=== PATIENT | female | born 1965 | race Caucasian/White ===

== ENCOUNTER 2016-03-08 06:50 | Day surgery (SDC) | payer BC ==
--- NOTE | 2016-03-08 11:04 | Operative Note - Ferro ---
PAIN SERVICE OPERATIVE REPORT DATE OF PROCEDURE: 03/08/2016. SURGEON: Aly Mcgrath D.O. PREOPERATIVE DIAGNOSIS: LUMBAR RADICULITIS, ICD10 CODE M54.16 AND M54.17. PROCEDURE: Fluoroscopically guided bilateral lumbar epidural injection at L4-5. ANESTHESIA: Local sedation. ANESTHESIA PROVIDER: Raleigh Evans CRNA. INDICATIONS: This patient presents with pain which starts in the back but then extends into the hips and legs. Her diagnostics show both a 4-5 and a 5-1 disc. The current pattern is 4-5. DESCRIPTION OF PROCEDURE: Intravenous line, vital sign monitoring, intravenous sedation. Prepped and draped with sterile technique. Under imaging, the epidural interspace at L4-5 was marked bilaterally. The skin was infiltrated. Two separate 17-gauge, 6-inch Tuohy needles, one left and one right of midline. Contrast epidurogram showed symmetric left quadrant flow followed by symmetric right quadrant flow. A total of 5.0 mL of 0.125% Marcaine with dexamethasone was injected, first left and then right. Both needles were removed. The back was cleaned, topical antibiotic and sterile dressing were applied. We will monitor and evaluate. Aly Mcgrath D.O. Date Time JOB NUMBER: [id number] cc: Dr. Tin NARANJO
[2016-03-08] MEDS ORDERED: MIDAZOLAM HCL 2MG/2ML VIAL IV ONE (13:20)
[2016-03-08] MEDS ORDERED: PROPOFOL 10 MG/ML VIAL IV ONE (13:20)
[2016-03-08] MEDS ORDERED: FENTANYL PF 100MCG/2ML VIAL IV ONE ×2 (13:20→14:28)
[2016-03-08] MEDS ORDERED: LIDOCAINE 2% MDV (20MG/ML) 20ML VIAL IV ONE (13:20)
[2016-03-08] MEDS ORDERED: 0.9 % SODIUM CHLORIDE 10 ML VIAL IVP ONE (14:28)
[2016-03-08] MEDS ORDERED: LIDOCAINE 1% W/EPI 1:200,000 MPF 30ML SQ ONE (14:28)
[2016-03-08] MEDS ORDERED: BUPIVACAINE 0.5% W/EPI MPF 30 ML VIAL IVP ONE (14:28)
[2016-03-08] MEDS ORDERED: HYDROMORPHONE HCL 2 MG/ML VIAL IV ONE (14:28)
[2016-03-08] MEDS ORDERED: DEXAMETHASONE PRESERVATIVE FREE 10MG/ML VIAL IV ONE (14:28)
[2016-03-08] MEDS ORDERED: BUPIVACAINE 0.25% W/EPI MPF 30ML VIAL IVP ONE (14:28)
== END 2016-03-08 09:15 | disposition home or self-care (01) ==
LOC: SUR 06:50
PROVIDERS: ATTEND Pain Medicine Interventional Pain Medicine
DX: M54.16 Radiculopathy, lumbar region (principal); M54.17 Radiculopathy, lumbosacral region
CPT/HCPCS: 62322; 01992; Q9967; J1100; J3010; J1170

== ENCOUNTER 2016-05-31 06:39 | Day surgery (SDC) | payer BC ==
[2016-05-31] MEDS ORDERED: BUPIVACAINE 0.5% W/EPI MPF 30 ML VIAL IVP ONE (10:03)
[2016-05-31] MEDS ORDERED: BUPIVACAINE 0.25% W/EPI MPF 30ML VIAL IVP ONE (10:03)
[2016-05-31] MEDS ORDERED: DEXAMETHASONE PRESERVATIVE FREE 10MG/ML VIAL IV ONE (10:03)
[2016-05-31] MEDS ORDERED: LIDOCAINE 1% W/EPI 1:200,000 MPF 30ML SQ ONE (10:03)
[2016-05-31] MEDS ORDERED: FENTANYL PF 100MCG/2ML VIAL IV ONE (14:50)
[2016-05-31] MEDS ORDERED: LIDOCAINE 2% MDV (20MG/ML) 20ML VIAL IV ONE (14:50)
[2016-05-31] MEDS ORDERED: MIDAZOLAM HCL 2MG/2ML VIAL IV ONE (14:50)
[2016-05-31] MEDS ORDERED: PROPOFOL 10 MG/ML VIAL IV ONE (14:50)
--- NOTE | 2016-05-31 16:11 | Operative Note - Ferro ---
DATE OF SURGERY: 05/31/16 PREOPERATIVE DIAGNOSIS: CERVICAL RADICULITIS, ICD-10 CODE = M54.13. OPERATION: FLUOROSCOPICALLY-GUIDED RIGHT QUADRANT CERVICAL EPIDURAL INJECTION C5/6. SURGEON: LEXI MARTIN D.O. ANESTHESIA: LOCAL SEDATION. ANESTHESIA PROVIDER: JEFFREY FRANKLIN CRNA. INDICATION: This patient presents with pain, which is right-sided neck and shoulder. Diagnostic studies show disc space abnormality to 4/5, 5/6, and 6/7. PROCEDURE: Intravenous line, vital sign monitoring, IV sedation, prepped, draped, sterile technique. Consistent with the pattern of pain into the shoulder following a 5/6 distribution. Cervical epidural interspace at C5/6 marked on the right, infiltrated, and an 18-gauge Tuohy needle with loss-of- resistance. Contrast epidurogram showing extensive right quadrant flow characteristics. 5 mL of 0.125% Marcaine with Dexamethasone injected. Needle removed. Neck cleaned. Topical antibiotic. Sterile dressing applied. We will monitor and evaluate. LEXI MARTIN D.O. Date & Time cc: Dr. Frederick JOB NUMBER: [id number] MTDD
== END 2016-05-31 08:40 | disposition home or self-care (01) ==
LOC: SUR 06:39
PROVIDERS: ATTEND Pain Medicine Interventional Pain Medicine
DX: M54.13 Radiculopathy, cervicothoracic region (principal)
CPT/HCPCS: 62321; 01991; Q9967; J1100; J3010

== ENCOUNTER 2016-09-27 07:11 | Day surgery (SDC) | payer BC ==
[2016-09-27] MEDS ORDERED: BUPIVACAINE 0.25% MPF 30ML VIAL IVP ONE (11:12)
[2016-09-27] MEDS ORDERED: BUPIVACAINE 0.25% W/EPI MPF 30ML VIAL IVP ONE (11:12)
[2016-09-27] MEDS ORDERED: LIDOCAINE 1% W/EPI 1:200,000 MPF 30ML SQ ONE (11:12)
[2016-09-27] MEDS ORDERED: DEXAMETHASONE PRESERVATIVE FREE 10MG/ML VIAL IV ONE (11:12)
[2016-09-27] MEDS ORDERED: HYDROCODONE/APAP 7.5/325MG TABLET PO ONE (11:12)
[2016-09-27] MEDS ORDERED: 0.9 % SODIUM CHLORIDE 10 ML VIAL IVP ONE (11:12)
[2016-09-27] MEDS ORDERED: PROPOFOL 10 MG/ML VIAL IV ONE (14:00)
[2016-09-27] MEDS ORDERED: LIDOCAINE 2% MDV (20MG/ML) 20ML VIAL IV ONE (14:00)
[2016-09-27] MEDS ORDERED: FENTANYL PF 100MCG/2ML VIAL IV ONE (14:00)
[2016-09-27] MEDS ORDERED: MIDAZOLAM HCL 2MG/2ML VIAL IV ONE (14:00)
--- NOTE | 2016-09-27 19:51 | Operative Note - Ferro ---
DATE OF SURGERY: 09/27/16 PREOPERATIVE DIAGNOSIS: LUMBAR RADICULITIS, ICD-10 CODE = M54.16 AND M54.17. OPERATION: FLUOROSCOPIC-GUIDED BILATERAL LUMBAR EPIDURAL INJECTION, L4-5. SURGEON: LEXI MARTIN D.O. ANESTHESIA: LOCAL SEDATION. ANESTHESIA PROVIDER: JEFFREY FRANKLIN CRNA. INDICATION: This patient presents with pain, which starts in the back but then extends into the hips and legs. Diagnostics did show a 4-5 and a 5-1 disc with the current pattern towards the hips and outer leg as L4-5. PROCEDURE: Intravenous line, vital sign monitoring, IV sedation. Prepped and draped sterile technique. Under imaging, the epidural interspace at L4-5 was identified and marked bilaterally. Skin infiltrated. Two separate #18 gauge needles, one left and one right at the midline. 5 mL 0.125% Marcaine with Dexamethasone injected. [place] removed, back cleaned. Topical antibiotic and sterile dressing applied. Will monitor and evaluate. cc: Dr. Fish Frederick JOB NUMBER: [id number] MTDD
== END 2016-09-27 09:04 | disposition home or self-care (01) ==
LOC: SUR 07:11
PROVIDERS: ATTEND Pain Medicine Interventional Pain Medicine
DX: M54.16 Radiculopathy, lumbar region (principal); M54.17 Radiculopathy, lumbosacral region
CPT/HCPCS: 62323; 01936; J1100; J3010

== ENCOUNTER 2016-10-18 06:51 | Day surgery (SDC) | payer BC ==
[2016-10-18] MEDS ORDERED: LIDOCAINE 2% MDV (20MG/ML) 20ML VIAL IV ONE (14:00)
[2016-10-18] MEDS ORDERED: FENTANYL PF 100MCG/2ML VIAL IV ONE (14:00)
[2016-10-18] MEDS ORDERED: PROPOFOL 10 MG/ML VIAL IV ONE (14:00)
[2016-10-18] MEDS ORDERED: DEXAMETHASONE PRESERVATIVE FREE 10MG/ML VIAL IV ONE (14:00)
[2016-10-18] MEDS ORDERED: BUPIVACAINE 0.25% MPF 30ML VIAL IVP ONE (14:00)
[2016-10-18] MEDS ORDERED: LIDOCAINE 1% W/EPI 1:200,000 MPF 30ML SQ ONE (14:00)
[2016-10-18] MEDS ORDERED: MIDAZOLAM HCL 2MG/2ML VIAL IV ONE (14:00)
[2016-10-18] MEDS ORDERED: BUPIVACAINE 0.5% W/EPI MPF 30 ML VIAL IVP ONE (14:00)
[2016-10-18] MEDS ORDERED: 0.9 % SODIUM CHLORIDE 10 ML VIAL IVP ONE (14:00)
--- NOTE | 2016-10-18 22:02 | Operative Note - Ferro ---
DATE OF SURGERY: 10/18/16 PREOPERATIVE DIAGNOSIS: LUMBAR RADICULITIS, ICD-10 CODE = M54.16 AND M54.17. OPERATION: FLUOROSCOPIC-GUIDED BILATERAL LUMBAR EPIDURAL INJECTION, L4-5. SURGEON: LEXI MARTIN D.O. ANESTHESIA: IV SEDATION BY ANESTHESIA. ANESTHESIA PROVIDER: JEFFREY FRANKLIN CRNA INDICATION: This patient presents with pain, which starts in the back but then extends into the hips and legs. Diagnostics show both a 4-5 and a 5-1 disc. The current pattern of pain follows the hips and outer leg, L4-5. PROCEDURE: Intravenous line, vital sign monitoring, IV sedation. Prepped and draped in sterile technique. Patient prone. Epidural interspace at L4-5 was identified and marked bilaterally. Skin infiltrated. Two separate #18 gauge Tuohy needles, one left and one right at the midline. 5 mL 0.125% Marcaine with Dexamethasone injected at each. [place] removed, back cleaned. Topical antibiotic and sterile dressing applied. Will monitor and evaluate. cc: Dr. Frederick JOB NUMBER: [id number] MTDD
== END 2016-10-18 08:47 | disposition home or self-care (01) ==
LOC: SUR 06:51
PROVIDERS: ATTEND Pain Medicine Interventional Pain Medicine
DX: M54.16 Radiculopathy, lumbar region (principal); M54.17 Radiculopathy, lumbosacral region; F17.200 Nicotine dependence, unspecified, uncomplicated

== ENCOUNTER 2016-12-06 07:05 | Day surgery (SDC) | payer BC ==
[~2016-12-06 07:05] MED LIST: ACETAMINOPHEN 1,000 MG/100 ML BTL IV ONE
[2016-12-06] MEDS ORDERED: LIDOCAINE 1% W/EPI 1:200,000 MPF 30ML SQ ONE (13:38)
[2016-12-06] MEDS ORDERED: 0.9 % SODIUM CHLORIDE 10 ML VIAL IVP ONE (13:38)
[2016-12-06] MEDS ORDERED: BUPIVACAINE 0.5% W/EPI MPF 30 ML VIAL IVP ONE (13:38)
[2016-12-06] MEDS ORDERED: DEXAMETHASONE PRESERVATIVE FREE 10MG/ML VIAL IV ONE (13:38)
[2016-12-06] MEDS ORDERED: BUPIVACAINE 0.25% MPF 30ML VIAL IVP ONE (13:38)
[2016-12-06] MEDS ORDERED: FENTANYL PF 100MCG/2ML VIAL IV ONE (14:00)
[2016-12-06] MEDS ORDERED: LIDOCAINE 2% MDV (20MG/ML) 20ML VIAL IV ONE (14:00)
[2016-12-06] MEDS ORDERED: MIDAZOLAM HCL 2MG/2ML VIAL IV ONE (14:00)
[2016-12-06] MEDS ORDERED: PROPOFOL 10 MG/ML VIAL IV ONE (14:00)
--- NOTE | 2016-12-06 15:44 | Operative Note - Ferro ---
DATE OF SURGERY: 12/06/16 PREOPERATIVE DIAGNOSIS: CERVICAL RADICULITIS, ICD-10 CODE = M54.13. OPERATION: FLUOROSCOPICALLY-GUIDED CERVICAL EPIDURAL INJECTION C6/7 RIGHT. SURGEON: LEXI MARTIN D.O. ANESTHESIA: LOCAL SEDATION. ANESTHESIA PROVIDER: JEFFREY FRANKLIN CRNA. INDICATION: This patient presents with pain, which is right-sided neck and shoulder. Diagnostic studies of the cervical spine show nonspecific changes. Current pattern follows a 5/6 and 6/7 distribution. PROCEDURE: Intravenous line, vital sign monitoring, IV sedation, prepped, draped, sterile technique. Under imaging, cervical epidural interspace quadrant C6/7 marked, infiltrated, and an 18-gauge Tuohy needle with [id number]. 5 mL of 0.125% Marcaine with Dexamethasone injected. Needle removed. Neck cleaned. Topical antibiotic. Sterile dressing applied. We will monitor and evaluate. cc: Dr. Frederick JOB NUMBER: [id number] MTDD
== END 2016-12-06 08:45 | disposition home or self-care (01) ==
LOC: SUR 07:05
PROVIDERS: ATTEND Pain Medicine Interventional Pain Medicine
DX: M54.13 Radiculopathy, cervicothoracic region (principal)
CPT/HCPCS: 62321; 01936; J1100; J3010

== ENCOUNTER 2017-04-04 07:06 | Day surgery (SDC) | payer BC ==
[2017-04-04] MEDS ORDERED: MIDAZOLAM HCL 2MG/2ML VIAL IV ONE (07:07)
[2017-04-04] MEDS ORDERED: PROPOFOL 10 MG/ML VIAL IV ONE (07:07)
[2017-04-04] MEDS ORDERED: LIDOCAINE 2% MDV (20MG/ML) 20ML VIAL IV ONE (07:07)
[2017-04-04] MEDS ORDERED: BUPIVACAINE 0.5% W/EPI MPF 30 ML VIAL IVP ONE (07:07)
[2017-04-04] MEDS ORDERED: FENTANYL PF 100MCG/2ML VIAL IV ONE (07:07)
[2017-04-04] MEDS ORDERED: LIDOCAINE 1% W/EPI 1:200,000 MPF 30ML SQ ONE (07:07)
[2017-04-04] MEDS ORDERED: DEXAMETHASONE PRESERVATIVE FREE 10MG/ML VIAL IV ONE (07:07)
[2017-04-04] MEDS ORDERED: 0.9 % SODIUM CHLORIDE 10 ML VIAL IVP ONE (07:07)
[2017-04-04] MEDS ORDERED: BUPIVACAINE 0.25% MPF 30ML VIAL IVP ONE (07:07)
--- NOTE | 2017-04-04 15:04 | Operative Note - Ferro ---
DATE OF SURGERY: 04/04/17 PREOPERATIVE DIAGNOSIS: LUMBAR RADICULITIS, ICD-10 CODE M54.16 AND M54.17. OPERATION: FLUOROSCOPICALLY-GUIDED BILATERAL LUMBAR EPIDURAL INJECTION L4-L5. SURGEON: LEXI MARTIN D.O. ANESTHESIA: LOCAL SEDATION. ANESTHESIA PROVIDER: GEGE BRIONES CRNA. INDICATION: This patient presents with pain, which starts in the back but extends equally into both legs, left and right, across an outer and front surface. The pattern and distribution is in L4. Her diagnostics show both a 4-5 and a 5-1 disc. PROCEDURE: Intravenous line, vital sign monitoring, IV sedation, prepped, draped, sterile technique. The epidural interspace at L4-L5 identified and marked bilaterally. Skin infiltrated then two separate 17-gauge six-inch Tuohy needles one left and one right of the midline with [id number]. 5 mL of 0.125% Marcaine with Dexamethasone was injected, first left then right. Both needles removed. Back cleaned. Topical antibiotic. Sterile dressing were applied. We will monitor and evaluate. cc: Dr. Castle JOB NUMBER: [id number] MTDD
== END 2017-04-04 08:40 | disposition home or self-care (01) ==
LOC: SUR 07:06
PROVIDERS: ATTEND Pain Medicine Interventional Pain Medicine
DX: M54.16 Radiculopathy, lumbar region (principal); M54.17 Radiculopathy, lumbosacral region
CPT/HCPCS: 62323; 01936; J1100

== ENCOUNTER 2017-05-23 07:14 | Day surgery (SDC) | payer BC ==
[2017-05-23] MEDS ORDERED: LIDOCAINE 1% W/EPI 1:200,000 MPF 30ML SQ ONE (07:15)
[2017-05-23] MEDS ORDERED: 0.9 % SODIUM CHLORIDE 10 ML VIAL IVP ONE (07:15)
[2017-05-23] MEDS ORDERED: BUPIVACAINE 0.25% MPF 30ML VIAL IVP ONE (07:15)
[2017-05-23] MEDS ORDERED: DEXAMETHASONE PRESERVATIVE FREE 10MG/ML VIAL IV ONE (07:15)
[2017-05-23] MEDS ORDERED: BUPIVACAINE 0.5% W/EPI MPF 30 ML VIAL IVP ONE (07:15)
[2017-05-23] MEDS ORDERED: LIDOCAINE 2% MDV (20MG/ML) 20ML VIAL IV ONE (07:15)
[2017-05-23] MEDS ORDERED: MIDAZOLAM HCL 2MG/2ML VIAL IV ONE (07:15)
[2017-05-23] MEDS ORDERED: PROPOFOL 10 MG/ML VIAL IV ONE (07:15)
[2017-05-23] MEDS ORDERED: FENTANYL PF 100MCG/2ML VIAL IV ONE (07:15)
--- NOTE | 2017-05-23 15:31 | Operative Note - Ferro ---
DATE OF SURGERY: 05/23/17 PRIMARY CARE PHYSICIAN: DR. CASTLE. PREOPERATIVE DIAGNOSIS: LUMBAR RADICULOPATHY, ICD-10 CODE = M54.13 AND M54.12. OPERATION: FLUOROSCOPICALLY-GUIDED RIGHT QUADRANT EPIDURAL INJECTION C6/7. SURGEON: LEXI MARTIN D.O. ANESTHESIA: LOCAL SEDATION. ANESTHESIA PROVIDER: JEFFREY FRANKLIN CRNA. INDICATION: This patient presents with pain, which is right-sided neck, shoulder, and arm. Diagnostics show a 5/6 and a 6/7 disc. PROCEDURE: Intravenous line, vital sign monitoring, IV sedation, prepped, draped, sterile technique. Under imaging, cervical epidural interspace at C6/7 marked and infiltrated. A 20-gauge, 3.5 inch Tuohy needle with loss-of- resistance. 5 mL of 0.125% Marcaine with Dexamethasone was injected. Needle removed. Back cleaned. Topical antibiotic. Sterile dressing was applied. We will monitor and evaluate. cc: Dr. Castle JOB NUMBER: [id number] MTDD
== END 2017-05-23 08:42 | disposition home or self-care (01) ==
LOC: SUR 07:14
PROVIDERS: ATTEND Pain Medicine Interventional Pain Medicine
DX: M54.13 Radiculopathy, cervicothoracic region (principal); M54.12 Radiculopathy, cervical region; J45.909 Unspecified asthma, uncomplicated
CPT/HCPCS: 62321; 01936; J1100

== ENCOUNTER 2017-07-11 07:00 | Day surgery (SDC) | payer BC ==
[2017-07-11] MEDS ORDERED: LIDOCAINE 1% W/EPI 1:200,000 MPF 30ML SQ ONE (07:01)
[2017-07-11] MEDS ORDERED: FENTANYL PF 100MCG/2ML VIAL IV ONE (07:01)
[2017-07-11] MEDS ORDERED: MIDAZOLAM HCL 2MG/2ML VIAL IV ONE (07:01)
[2017-07-11] MEDS ORDERED: BUPIVACAINE 0.5% W/EPI MPF 30 ML VIAL IVP ONE (07:01)
[2017-07-11] MEDS ORDERED: DEXAMETHASONE PRESERVATIVE FREE 10MG/ML VIAL IV ONE (07:01)
[2017-07-11] MEDS ORDERED: LIDOCAINE 2% MDV (20MG/ML) 20ML VIAL IV ONE (07:01)
[2017-07-11] MEDS ORDERED: BUPIVACAINE 0.25% MPF 30ML VIAL IVP ONE (07:01)
[2017-07-11] MEDS ORDERED: PROPOFOL 10 MG/ML VIAL IV ONE (07:01)
--- NOTE | 2017-07-12 07:23 | Operative Note ---
PAIN SERVICE OPERATIVE REPORT DATE OF PROCEDURE: 07/11/2017. SURGEON: Aly Mcgrath D.O. PREOPERATIVE DIAGNOSIS: CERVICAL RADICULOPATHY, ICD10 CODE M54.12. PROCEDURE: Fluoroscopically guided cervical epidural injection at C6-7. INDICATIONS: This patient presents with pain which is in the neck, shoulder, and arm. Diagnostics do show diffuse spondylosis with a 5-6/6-7 disc. ANESTHESIA: Local sedation. ANESTHESIA PROVIDER: Raleigh Evans CRNA. DESCRIPTION OF PROCEDURE: Intravenous line, vital sign monitoring, intravenous sedation. Prepped and draped with sterile technique. Under imaging, the cervical epidural interspace at C6-7 was marked and infiltrated. An 18-gauge Tuohy needle was used with loss of resistance. Contrast epidurogram showed diffuse epidural flow characteristics. A total of 5.0 mL of 0.125% Marcaine with dexamethasone was injected. The needle was removed. The neck was cleaned , and topical antibiotic and sterile dressing were applied. We will monitor and evaluate. JOB NUMBER: [id number] cc: Blade Castle D.O. MTDD
== END 2017-07-11 08:35 | disposition home or self-care (01) ==
LOC: SUR 07:00
PROVIDERS: ATTEND Pain Medicine Interventional Pain Medicine
DX: M54.12 Radiculopathy, cervical region (principal); J45.909 Unspecified asthma, uncomplicated; F17.210 Nicotine dependence, cigarettes, uncomplicated

== ENCOUNTER 2017-08-23 06:01 | Day surgery (SDC) | payer BC ==
[2017-08-23] MEDS ORDERED: PROPOFOL 10 MG/ML VIAL IV ONE (06:02)
[2017-08-23] MEDS ORDERED: FENTANYL PF 100MCG/2ML VIAL IV ONE (06:02)
[2017-08-23] MEDS ORDERED: ROPIVACAINE HCL (NAROPIN) /PF 5MG/ML 20ML VIAL IV ONE (06:02)
[2017-08-23] MEDS ORDERED: MIDAZOLAM HCL 2MG/2ML VIAL IV ONE (06:02)
[2017-08-23] MEDS ORDERED: SEVOFLURANE 250 ML INH ONE (06:02)
[2017-08-23] MEDS ORDERED: ONDANSETRON HCL IV 4 MG/2 ML VIAL IVP ONE (06:02)
[2017-08-23] MEDS ORDERED: LIDOCAINE 2% MDV (20MG/ML) 20ML VIAL IV ONE (06:02)
[2017-08-23] MEDS ORDERED: DEXAMETHASONE 4 MG/ML 1ML VIAL IVP ONE (06:02)
[2017-08-23] MEDS ORDERED: KETOROLAC 30 MG/ML VIAL IVP ONE (06:02)
--- NOTE | 2017-08-24 15:21 | Operative Note ---
DATE OF SURGERY: 08/23/2017 PREOPERATIVE DIAGNOSIS: Cubital tunnel syndrome of the left elbow. POSTOPERATIVE DIAGNOSIS: Cubital tunnel syndrome of the left elbow. OPERATIVE PROCEDURE: Submuscular ulnar nerve transposition at the left elbow. DESCRIPTION: This 52-year-old female was taken to the operating room and placed in the supine position on the operating room table. General anesthesia was induced. The left upper extremity was elevated, prepped with Hibiclens, and draped in the usual sterile fashion. It was exsanguinated and the tourniquet inflated to 250 mm Hg. A curvilinear incision was made centering over the medial epicondyle of the left elbow, and dissection was carried down through the skin and subcutaneous tissue. Hemostasis obtained with the electrocautery. Dissection was carried down to the ulnar nerve proximal to the cubital tunnel and the nerve easily identified here, and then with the nerve under direct vision and protected, the aponeurosis was incised to free the ulnar nerve from the impingement. The nerve was extremely tight, and once freed, demonstrated mild hourglass-type deformity. There was also slight nerve atrophy. Once the nerve had been freed, we followed it down to the first motor branch. Once this was identified, we stopped the dissection and elevated it off the conjoined tendon of the medial epicondyle and transposed the nerve into the submuscular position. Drill holes were made in the medial epicondyle, and O Vicryl was used through 3 drill holes to secure the tendon back to its anatomic origin. Before the sutures were tied, we flexed and extended the elbow and made sure that the ulnar nerve was freely mobile in the transposed position with no impingement being identified. Subsequently, the nerve was held back and the sutures were tied, and once all the sutures were tied, the elbow was taken through range of motion again to make sure that there was no impingement of the ulnar nerve. The wound was irrigated with lactated Ringer's solution and hemostasis obtained with the electrocautery. The subcutaneous tissue was closed with 3-0 Vicryl and the skin closed with running interlocking 4-0 nylon suture. Sterile dressings were applied, and the patient taken to the recovery room in satisfactory condition with a plaster splint in place with the elbow at 90 degrees and in mid pronation/supination. GROSS PATHOLOGY: This patient demonstrated marked compression of the ulnar nerve in the cubital tunnel, mild atrophy, and hourglass deformity of the nerve was identified. CC: DO JOSE A Castro
== END 2017-08-23 09:08 | disposition home or self-care (01) ==
LOC: SUR 06:01
PROVIDERS: ATTEND Orthopaedic Surgery
DX: G56.02 Carpal tunnel syndrome, left upper limb (principal); F17.210 Nicotine dependence, cigarettes, uncomplicated; F41.9 Anxiety disorder, unspecified; M54.9 Dorsalgia, unspecified; M54.2 Cervicalgia
CPT/HCPCS: 24358; 01712; 64417; J1885; J2405; J3010; J2795; 76942

== ENCOUNTER → 2017-12-19 | Day surgery (SDC) | payer BC ==
[~2017-12-19] MED LIST changes: +0.9 % SODIUM CHLORIDE 10 ML VIAL IVP ONE; -ACETAMINOPHEN 1,000 MG/100 ML BTL IV ONE; +BUPIVACAINE 0.25% W/EPI MPF 30ML VIAL IVP ONE; +BUPIVACAINE 0.5% W/EPI MPF 30 ML VIAL IVP ONE; +FENTANYL PF 100MCG/2ML VIAL IV ONE; +LIDOCAINE 1% W/EPI 1:200,000 MPF 30ML SQ ONE; +LIDOCAINE 2% MDV (20MG/ML) 20ML VIAL IV ONE; +MIDAZOLAM HCL 2MG/2ML VIAL IV ONE; +PROPOFOL 10 MG/ML VIAL IV ONE
--- NOTE | 2017-12-19 21:14 | Operative Note ---
DATE OF SURGERY: 12/19/2017 PREOPERATIVE DIAGNOSIS: LUMBAR RADICULOPATHY, ICD-10 CODE = M54.16 AND M54.17. SURGERY: FLUOROSCOPIC-GUIDED BILATERAL LUMBAR EPIDURAL INJECTION L4-5. SURGEON: LEXI MARTIN D.O. PRIMARY CARE PHYSICIAN: DR. RUBINA OH ANESTHESIA: LOCAL SEDATION. ANESTHESIA PROVIDER: CLEMENT DUNN INDICATIONS: This patient presents with pain, which is low back and bilateral legs. The component is across the hip on her front surface, which reflects an L4 pattern. Diagnostics do show a 4-5 and 5-1 disc to the pattern and the disc is 4-5. SURGERY: Intravenous line, vital sign monitoring, IV sedation, prepped and draped, sterile technique. Under imaging, the epidural interspace at L4-5 identified and marked, infiltrated. Two separate #18 gauge Tuohy needles, one left and one right of the midline, 5 mL of 0.125% Marcaine with Dexamethasone injected. Needle removed. Back cleaned. Topical antibiotic. Sterile dressing was applied. We will monitor and evaluate. cc: Dr. Oh JOB NUMBER: [id number] MTDD
== END | disposition home or self-care (01) ==
LOC: SUR 06:29
PROVIDERS: ATTEND Pain Medicine Interventional Pain Medicine
DX: M54.16 Radiculopathy, lumbar region (principal); M54.17 Radiculopathy, lumbosacral region; J45.909 Unspecified asthma, uncomplicated; K21.9 Gastro-esophageal reflux disease without esophagitis
CPT/HCPCS: 62323; 01936; J3010

== ENCOUNTER 2018-04-10 06:27 | Day surgery (SDC) | payer BC ==
[2018-04-10] MEDS ORDERED: LIDOCAINE 1% W/EPI 1:200,000 MPF 30ML SQ ONE (06:28)
[2018-04-10] MEDS ORDERED: BUPIVACAINE 0.25% MPF 30ML VIAL IVP ONE (06:28)
[2018-04-10] MEDS ORDERED: DEXAMETHASONE PRESERVATIVE FREE 10MG/ML VIAL IV ONE (06:28)
[2018-04-10] MEDS ORDERED: PROPOFOL 10 MG/ML VIAL IV ONE (06:28)
[2018-04-10] MEDS ORDERED: FENTANYL PF 100MCG/2ML VIAL IV ONE (06:28)
[2018-04-10] MEDS ORDERED: 0.9 % SODIUM CHLORIDE 10 ML VIAL IVP ONE (06:28)
[2018-04-10] MEDS ORDERED: MIDAZOLAM HCL 2MG/2ML VIAL IV ONE (06:28)
[2018-04-10] MEDS ORDERED: LIDOCAINE 2% MDV (20MG/ML) 20ML VIAL IV ONE (06:28)
[2018-04-10] MEDS ORDERED: BUPIVACAINE 0.5% W/EPI MPF 30 ML VIAL IVP ONE (06:28)
--- NOTE | 2018-04-10 17:25 | Operative Note ---
DATE OF SURGERY: 04/10/08 PREOPERATIVE DIAGNOSIS: LUMBAR RADICULOPATHY, ICD-10 CODE = M54.16 AND M54.17. SURGERY: FLUOROSCOPIC-GUIDED BILATERAL LUMBAR EPIDURAL INJECTION L4-5. SURGEON: LEXI MARTIN D.O. PRIMARY CARE PHYSICIAN: DR. OH. ANESTHESIA: LOCAL SEDATION. ANESTHESIA PROVIDER: CLEMENT DUNN. INDICATIONS: This patient presents with pain, which is low back, hip, and leg. The leg component across the outer front surface. The pattern is 4-5. Her diagnostics do show a 4-5 and 5-1 disc; the pattern 4-5. SURGERY: Intravenous line, vital sign monitoring, IV sedation, prepped and draped, sterile technique. The epidural interspace at L4-5 identified and marked bilaterally. Skin infiltrated. Two separate #18 gauge Tuohy needles, one left and one right of the midline. 5 mL of 0.125% Marcaine with Dexamethasone injected. Needle removed. Back cleaned. Topical antibiotic. Sterile dressing was applied. We will monitor and evaluate. cc: Dr. Oh JOB NUMBER: [id number] MTDD
== END 2018-04-10 08:26 | disposition home or self-care (01) ==
LOC: SUR 06:27
PROVIDERS: ATTEND Pain Medicine Interventional Pain Medicine
DX: M54.16 Radiculopathy, lumbar region (principal); M54.17 Radiculopathy, lumbosacral region; J45.909 Unspecified asthma, uncomplicated; K21.9 Gastro-esophageal reflux disease without esophagitis; F17.210 Nicotine dependence, cigarettes, uncomplicated
CPT/HCPCS: 62323; 01992; Q9967; J1100; J3010

== ENCOUNTER 2018-06-05 06:22 | Day surgery (SDC) | payer BC ==
[2018-06-05] MEDS ORDERED: FENTANYL PF 100MCG/2ML VIAL IV ONE (06:23)
[2018-06-05] MEDS ORDERED: DEXAMETHASONE PRESERVATIVE FREE 10MG/ML VIAL IV ONE (06:23)
[2018-06-05] MEDS ORDERED: 0.9 % SODIUM CHLORIDE 10 ML VIAL IVP ONE (06:23)
[2018-06-05] MEDS ORDERED: MIDAZOLAM HCL 2MG/2ML VIAL IV ONE (06:23)
[2018-06-05] MEDS ORDERED: LIDOCAINE 1% W/EPI 1:200,000 MPF 30ML SQ ONE (06:23)
[2018-06-05] MEDS ORDERED: PROPOFOL 10 MG/ML VIAL IV ONE (06:23)
[2018-06-05] MEDS ORDERED: BUPIVACAINE 0.5% W/EPI MPF 30 ML VIAL IVP ONE (06:23)
[2018-06-05] MEDS ORDERED: LIDOCAINE 2% MDV (20MG/ML) 20ML VIAL IV ONE (06:23)
[2018-06-05] MEDS ORDERED: BUPIVACAINE 0.25% MPF 30ML VIAL IVP ONE (06:23)
--- NOTE | 2018-06-05 20:23 | Operative Note ---
DATE OF SURGERY: 06/05/2018 PREOPERATIVE DIAGNOSIS: CERVICAL RADICULOPATHY, ICD-10 CODE M54.16 AND M54.17. POSTOPERATIVE DIAGNOSIS: CERVICAL RADICULOPATHY, ICD-10 CODE M54.16 AND M54.17. SURGERY: FLUOROSCOPIC-GUIDED CERVICAL EPIDURAL INJECTION C6-7. SURGEON: LEXI MARTIN D.O. PRIMARY CARE PHYSICIAN: DR. CASTLE ANESTHESIA: LOCAL SEDATION. ANESTHESIA PROVIDER: JEFFREY FRANKLIN CRNA INDICATIONS: This patient presents with pain, which starts in the neck but then extends into the shoulder and arm. Diagnostic studies do show disc abnormalities at 5-6 and 6-7 and diffuse spondylitic change. SURGERY: Intravenous line, vital sign monitoring, IV sedation, prepped and draped sterile technique. The epidural interspace with the patient prone at C6- 7 was marked and infiltrated. A #20 gauge, 3.5 inch Tuohy needed with loss-of- resistance, atraumatic, no blood, no CSF. 5 mL 0.125% Marcaine with Dexamethasone injected. Needle removed, neck cleaned, topical antibiotic and sterile dressing applied. Will monitor and evaluate. cc: Dr. Castle JOB NUMBER: [id number] MTDD
== END 2018-06-05 08:16 | disposition home or self-care (01) ==
LOC: SUR 06:22
PROVIDERS: ATTEND Pain Medicine Interventional Pain Medicine
DX: M54.16 Radiculopathy, lumbar region (principal); M54.17 Radiculopathy, lumbosacral region; J45.909 Unspecified asthma, uncomplicated; K21.9 Gastro-esophageal reflux disease without esophagitis; K44.9 Diaphragmatic hernia without obstruction or gangrene
CPT/HCPCS: 62321; 01992; Q9967; J1100; J3010

== ENCOUNTER 2018-07-24 05:45 | Day surgery (SDC) | payer BC ==
[2018-07-24] MEDS ORDERED: FENTANYL PF 100MCG/2ML VIAL IV ONE (05:46)
[2018-07-24] MEDS ORDERED: MIDAZOLAM HCL 2MG/2ML VIAL IV ONE (05:46)
[2018-07-24] MEDS ORDERED: LIDOCAINE 2% MDV (20MG/ML) 20ML VIAL IV ONE (05:46)
[2018-07-24] MEDS ORDERED: PROPOFOL 10 MG/ML VIAL IV ONE (05:46)
[2018-07-24] MEDS ORDERED: RINGERS SOLUTION,LACTATED 1,000 ML IV ONE (06:10)
[2018-07-24] MEDS ORDERED: LIDOCAINE 1% W/EPI 1:200,000 MPF 30ML SQ ONE ×2 (07:06→07:35)
[2018-07-24] MEDS ORDERED: BUPIVACAINE 0.5% W/EPI MPF 30 ML VIAL SQ ONE ×2 (07:06→07:35)
[2018-07-24] MEDS ORDERED: BUPIVACAINE 0.25% PF (2.5MG/ML) 10ML VIAL IM ONE ×2 (07:06→07:35)
[2018-07-24] MEDS ORDERED: DEXAMETHASONE PRESERVATIVE FREE 10MG/ML VIAL SQ ONE ×2 (07:07→07:36)
--- NOTE | 2018-07-31 06:10 | Operative Note ---
DATE OF SURGERY: 07/24/2018 PREOPERATIVE DIAGNOSIS: Cervical radiculopathy, ICD10 code M54.12. OPERATION: Fluoroscopic-guided right quadrant cervical epidural injection C6-7. ANESTHESIA: Local with sedation. ANESTHESIA PROVIDER: Raleigh Evans INDICATION: This patient presents with pain which is neck and shoulders, somewhat more right than left. Diagnostics show a 5-6, 6-7 disc with multiple- level spondylosis. PROCEDURE: Intravenous line, vital sign monitoring, IV sedation, prepped and draped in sterile technique. Under imaging, the cervical epidural interspace right quadrant C6-7 marked, infiltrated, 18-gauge Tuohy needle, loss of resistance, atraumatic, no blood, no CSF. Then 5 mL of 0.125% Marcaine with dexamethasone injected. Needle removed. Neck cleaned with topical antibiotic. Sterile dressing applied. We will monitor and evaluate. MTDD
== END 2018-07-24 08:11 | disposition home or self-care (01) ==
LOC: SUR 05:45
PROVIDERS: ATTEND Pain Medicine Interventional Pain Medicine
DX: M54.12 Radiculopathy, cervical region (principal); K21.9 Gastro-esophageal reflux disease without esophagitis; J45.909 Unspecified asthma, uncomplicated; F17.210 Nicotine dependence, cigarettes, uncomplicated
CPT/HCPCS: 62321; 01992; Q9967; J1100; J3010; J7120

== ENCOUNTER 2019-03-26 06:06 | Day surgery (SDC) | payer BC ==
[~2019-03-26 06:06] MED LIST changes: -0.9 % SODIUM CHLORIDE 10 ML VIAL IVP ONE; -BUPIVACAINE 0.25% W/EPI MPF 30ML VIAL IVP ONE; -BUPIVACAINE 0.5% W/EPI MPF 30 ML VIAL IVP ONE; -FENTANYL PF 100MCG/2ML VIAL IV ONE; -LIDOCAINE 1% W/EPI 1:200,000 MPF 30ML SQ ONE; -LIDOCAINE 2% MDV (20MG/ML) 20ML VIAL IV ONE; -MIDAZOLAM HCL 2MG/2ML VIAL IV ONE; -PROPOFOL 10 MG/ML VIAL IV ONE; +RINGERS SOLUTION,LACTATED 1,000 ML IV ONE
[2019-03-26] MEDS ORDERED: LIDOCAINE 2% MDV (20MG/ML) 20ML VIAL IV ONE (06:07)
[2019-03-26] MEDS ORDERED: MIDAZOLAM HCL 2MG/2ML VIAL IV ONE (06:07)
[2019-03-26] MEDS ORDERED: FENTANYL PF 100MCG/2ML VIAL IV ONE (06:07)
[2019-03-26] MEDS ORDERED: PROPOFOL 10 MG/ML VIAL IV ONE (06:07)
[2019-03-26] MEDS ORDERED: RINGERS SOLUTION,LACTATED 1,000 ML IV ONE (06:20)
[2019-03-26] MEDS ORDERED: BUPIVACAINE 0.5% W/EPI MPF 30 ML VIAL SQ ONE (07:50)
[2019-03-26] MEDS ORDERED: LIDOCAINE 1% W/EPI 1:200,000 MPF 30ML SQ ONE (07:50)
[2019-03-26] MEDS ORDERED: BUPIVACAINE 0.25% PF (2.5MG/ML) 10ML VIAL IM ONE (07:51)
[2019-03-26] MEDS ORDERED: DEXAMETHASONE PRESERVATIVE FREE 10MG/ML VIAL SQ ONE (07:51)
--- NOTE | 2019-03-26 08:41 | Operative Note - Ferro ---
DATE OF SURGERY: 03/26/2019 PREOPERATIVE DIAGNOSIS: CERVICAL RADICULOPATHY, ICD-10 CODE M54.12. OPERATION: FLUOROSCOPICALLY GUIDED CERVICAL EPIDURAL INJECTION C6-C7. SURGEON: Aly Mcgrath D.O. ANESTHESIA: Local sedation. ANESTHESIA PROVIDER: Raleigh Evans CRNA INDICATION: This patient presents with pain which is neck, shoulder and arm. Diagnostics showed diffuse spondylitic change with the C6-C7 disk which reflects pattern of pain. PROCEDURE: Intravenous line, vital sign monitoring, IV sedation, prepped and draped, sterile technique. Under imaging the cervical epidural interspace C6-C7 marked, infiltrated, a 20-gauge 3-1/2 inch Tuohy needle, loss of resistance, atraumatic. No blood. No CSF. Contrast epidurogram showing diffuse epidural and appropriate flow characteristics. 5 ml of 0.125% Marcaine with Dexamethasone injected. Needle removed, neck clean, topical antibiotic, sterile dressing applied. Will monitor and evaluate. JOB NUMBER: [id number] MTDD
== END 2019-03-26 08:20 | disposition home or self-care (01) ==
LOC: SUR 06:06
PROVIDERS: ATTEND Pain Medicine Interventional Pain Medicine
DX: M54.12 Radiculopathy, cervical region (principal); J45.909 Unspecified asthma, uncomplicated; F17.210 Nicotine dependence, cigarettes, uncomplicated
CPT/HCPCS: 62320; 01992; Q9967; J1100; J3010; J7120